=== PATIENT | male | born 1985 ===

== ENCOUNTER 2020-09-14 17:01 | Emergency (ER) | payer OTHER, SELFPAY ==
[2020-09-14] MEDS ORDERED: Lidocaine 1% w/Epinephrine 1:100K 20 ML VIAL ONE (17:30)
[2020-09-14] MEDS ORDERED: Bacitracin 1 PK ONE (18:47)
== END 2020-09-14 19:09 | disposition home or self-care (01) ==
LOC: ERS 17:01
DX: S01.01XA Laceration without foreign body of scalp, initial encounter (principal); W22.8XXA Striking against or struck by other objects, initial encounter
CPT/HCPCS: 12002